=== PATIENT | female | born 1950 | race African-American/Black ===

== ENCOUNTER 2024-06-10 20:51 | Emergency (ER) | payer MEDICARE ==
[~2024-06-10] VITALS: Ht 165.1 cm; Wt 108.9 kg
[2024-06-10 20:59] VITALS: BP_SYST 152; PULSE 89; RESP 16; TEMP 97.4; O2SAT 97
[2024-06-10] MEDS ORDERED: DIPHENHYDRAMINE INJ 50 MG/ML VIAL IM ONE (21:30)
[2024-06-10] MEDS ORDERED: methylPREDNISolone SOD SUCC/PF 62.5 MG/ML VIAL ONE (21:51)
[2024-06-10 21:57] LABS: EOSINOPHILS # (AUTO) 0.1 K/uL (0.0-0.4); HEMOGLOBIN 13.2 g/dL (12.0-16.0); NEUTROPHILS # (AUTO) 4.6 K/uL (1.8-7.7); RED CELL DISTRIBUTION WIDTH 14.6 % (9.0-15.0); WHITE BLOOD COUNT (AUTO) 8.4 K/uL (4.8-10.8)
[2024-06-10 22:02] LABS: BASOPHILS % (AUTO) 0.4 % (0.0-2.0); EOSINOPHILS % (AUTO) 1.1 % (0.0-4.0); HEMATOCRIT 39.5 % (36-48); LYMPHOCYTES # (AUTO) 2.7 K/uL (1.0-5.5); LYMPHOCYTES % (AUTO) 31.8 % (20.5-51.5); MEAN CORPUSCULAR HEMOGLOBIN 31 pg (27-31); MEAN CORPUSCULAR HGB CONC 34 % (32-36); MEAN CORPUSCULAR VOLUME 92 fL (79.0-98.0); MONOCYTES % (AUTO) 11.8 % (1.7-9.3); NEUTROPHILS % (AUTO) 54.9 % (40.0-70.0); PLATELET COUNT (AUTO) 223 K/uL (130-430); RED BLOOD CELL COUNT(AUTO) 4.32 MIL/uL (4.2-6.2)
[2024-06-10] MEDS: DIPHENHYDRAMINE INJ 50 MG/ML VIAL IVP ONE (22:07)
[2024-06-10] MEDS: METHYLPREDNISOLONE SOD SUCC 40 MG/ML VIAL IVP ONE (22:08)
[2024-06-10] MEDS: FAMOTIDINE PF 20 MG/2 ML VIAL IVP ONE (22:08)
[2024-06-10 22:09] LABS: ANION GAP 10 (5-15); CALCIUM 8.6 mg/dL (8.4-11.0); CARBON DIOXIDE 25 mmol/L (23-29); CHLORIDE 106 mmol/L (98-107); CREATININE 1.68 mg/dL (0.55-1.30); GLUCOSE 101 mg/dL (74-106); POTASSIUM 3.9 mmol/L (3.5-5.1); SODIUM SERUM 141 mmol/L (136-145); UREA NITROGEN, BLOOD 35 mg/dL (8-21)
[2024-06-11] MEDS ORDERED: PRED20TA PO (00:34)
[2024-06-11] MEDS: NS 250 ML IV ONE (00:35)
[2024-06-11] MEDS ORDERED: FAMO20TA8 PO (00:35)
[2024-06-11 01:15] VITALS: BP_SYST 116; PULSE 75; RESP 18; TEMP 98.3; O2SAT 94
== END 2024-06-11 01:15 | disposition home or self-care (01) ==
LOC: SED 20:51
DX: T78.3XXA Angioneurotic edema, initial encounter (principal); N28.9 Disorder of kidney and ureter, unspecified; I10 Essential (primary) hypertension; Y99.8 Other external cause status
CPT/HCPCS: 99284; 96374; 96375; 80048; 85025; 36415; 93005; 96361; J1200; J3490; J7030; J2930